=== PATIENT | female | born 1975 | race African-American/Black ===

== ENCOUNTER 2024-04-23 12:52 | Emergency (ER) | payer MEDICAID ==
[~2024-04-23] VITALS: Ht 149.9 cm; Wt 58.0 kg
[~2024-04-23 12:52] MED LIST: ASPI-1406 PO; B50 GT; CITA10TA16 PO; CLON0.2T PO; HYDR100T11 MT; IPRA3AMP9 HHN; KEPP250 PO; LIP40 PO; MELA3TAB40 PO; METO25TA6 PO; NIFE-32 MT; P20 PO; PANT40TA51 PO; QUET300T2 PO; SEVE800T8 PO; TOPUD PO
[2024-04-23 12:56] VITALS: PULSE 87; RESP 14; O2SAT 100
[2024-04-23 13:04] VITALS: BP 155/94; TEMP 36.7; O2SAT 98
[2024-04-23] MEDS ORDERED: ACET-2708 MT (17:22)
== END 2024-04-23 18:27 | disposition home or self-care (01) ==
LOC: ER 12:52
DX: M70.41 Prepatellar bursitis, right knee (principal); I11.0 Hypertensive heart disease with heart failure; I50.9 Heart failure, unspecified; Z79.52 Long term (current) use of systemic steroids; Z79.82 Long term (current) use of aspirin; Z79.899 Other long term (current) drug therapy; Z99.2 Dependence on renal dialysis; X58.XXXA Exposure to other specified factors, initial encounter; Y93.89 Activity, other specified; Y92.89 Other specified places as the place of occurrence of the external cause; Y99.8 Other external cause status
CPT/HCPCS: 81025; 73700; 99284; Z7610; L1830

== ENCOUNTER 2024-07-04 09:26 | Inpatient (IN) | payer OTHER ==
[2024-07-04] VITALS (12 sets, daily range): BP systolic 130–206; BP diastolic 73–124; PULSE 95–121; RESP 18–26; TEMP 36.1–36.5; O2SAT 95–100
[~2024-07-04] VITALS: Ht 149.9 cm; Wt 60.6 kg
[~2024-07-04 09:26] MED LIST changes: +ATOR20TA65 PO; -B50 GT; +CALC667T2 PO; -CITA10TA16 PO; +ESCI5TAB16 PO; +FAMO20TA8 PO; +FOLI-43 PO; +FOLI1CAP6 PO; +FURO-151 MT; +HYDR50TA54 PO; -IPRA3AMP9 HHN; -KEPP250 PO; +LEVE750T10 PO; -LIP40 PO; +LOSA100T33 PO; +MELA10CA PO; -MELA3TAB40 PO; -P20 PO; -PANT40TA51 PO; +QUET200T30 PO; -QUET300T2 PO; -SEVE800T8 PO; -TOPUD PO
[2024-07-04 10:11] LABS: HEMATOCRIT. 32.8 % (36.0-48.0); MEAN CORPUSCULAR HEMOGLOBIN 28.2 pg (28.0-32.0); MEAN CORPUSCULAR HGB CONC 30.5 g/dL (31.0-37.0); MEAN CORPUSCULAR VOLUME 92.2 fL (81.0-99.0); RED BLOOD CELL COUNT 3.56 mill/uL (4.2-5.4); RED CELL DISTRIBUTION WIDTH 24.4 % (11.6-14.6)
[2024-07-04 10:14] LABS: DIFFERENTIAL COMMENT 1
[2024-07-04 10:28] LABS: CHLORIDE 100 mEq/L (98-107); SODIUM 134 mEq/L (136-145)
[2024-07-04 10:29] LABS: CALCIUM 7.8 mg/dL (8.7-10.4)
[2024-07-04 10:34] LABS: GLUCOSE 89 mg/dL (70-105)
[2024-07-04 10:35] LABS: ETHANOL BLOOD < 10 mg/dL (<10)
[2024-07-04 10:36] LABS: PLATELET 247 x1000/uL (130-400)
[2024-07-04] MEDS: LEVETIRACETAM 1000MG PREMIX 100 ML IV ONE (10:40)
[2024-07-04 10:44] LABS: ANISOCYTOSIS 3+
[2024-07-04 10:48] LABS: MICROCYTOSIS 1+
[2024-07-04 10:52] LABS: PLATELET ESTIMATE NORMAL
[2024-07-04 10:54] LABS: POTASSIUM 7.9 mEq/L (3.5-5.1)
[2024-07-04 10:55] LABS: CARBON DIOXIDE < 10 mEq/L (21-32); CREATININE 15.1 mg/dL (0.6-1.0); UREA NITROGEN BLOOD 145 mg/dL (9-23)
[2024-07-04] MEDS: ACETAMINOPHEN WITH CODEINE 300/30MG TABLET PO ONE (11:28)
[2024-07-04] MEDS: CALCIUM CHLORIDE 1GM/10ML SYR IV ONE (11:29)
[2024-07-04] MEDS: SODIUM BICARBONATE 8.4% 50MEQ/50ML SYR IV ONE (11:32)
[2024-07-04] MEDS: DEXTROSE 50% WATER 50ML SYRINGE IV ONE (11:32)
[2024-07-04] MEDS: INSULIN REGULAR (HUMULIN R) 1000UNITS/10ML VIAL IV ONE (11:32)
[2024-07-04] MEDS: FUROSEMIDE 100MG/10ML VIAL IV STA (11:32)
[2024-07-04] MEDS: HYDRALAZINE 20MG/ML VIAL IV PRN (11:56)
[2024-07-04 12:15] LABS: HEPATITIS B SURFACE ANTIGEN NEGATIVE (Negative)
[2024-07-04 12:35] LABS: HEPATITIS A AB IGM NEGATIVE (Negative)
[2024-07-04 12:36] LABS: HEPATITIS B CORE AB IGM NEGATIVE (Negative); HEPATITIS C AB NON REACTIVE (Neg) (Negative)
[2024-07-04] MEDS: ALBUTEROL (0.083%) 2.5MG/3ML NEB HHN ONE (12:45)
[2024-07-04 13:05] LABS: CLARITY URINE CLOUDY (CLEAR); COLOR URINE YELLOW (YELLOW); GLUCOSE URINE 1+ (NEGATIVE); KETONES URINE 1+ (NEGATIVE); LEUKOCYTE ESTERASE URINE 1+ (NEGATIVE); NITRITE URINE NEGATIVE (NEGATIVE); OCCULT BLOOD URINE 2+ (NEGATIVE); PH URINE 7.5 (4.5-8.0); PROTEIN URINE 4+ (NEGATIVE); SPECIFIC GRAVITY URINE 1.015 (1.005-1.030); UROBILINOGEN URINE 0.2 E.U./dL (0.2-1.0)
[2024-07-04 13:07] LABS: SQUAMOUS EPITHELIAL CELL URINE 2+ /lpf (RARE/1+)
[2024-07-04 13:08] LABS: BACTERIA URINE 4+; RBC URINE 15-25 /hpf (0-2)
[2024-07-04] MEDS: NIFEDIPINE XL 90MG TAB PO SCH (13:09)
[2024-07-04 13:40] LABS: *AMPHETAMINES SCREEN URINE PRESUMPTIVE POSITIVE (NEGATIVE); *BARBITURATES SCREEN URINE NEGATIVE (NEGATIVE); *BENZODIAZEPINES SCREEN URINE NEGATIVE (NEGATIVE); *COCAINE SCREEN URINE NEGATIVE (NEGATIVE); METHADONE URINE SCREEN NEGATIVE (NEGATIVE); OPIATES URINE SCREEN NEGATIVE (NEGATIVE)
[2024-07-04 13:41] LABS: CANNABINOID URINE SCREEN NEGATIVE (NEGATIVE); ECSTASY MDMA SCREEN URINE NEGATIVE (NEGATIVE); PHENCYCLIDINE URINE SCREEN NEGATIVE (NEGATIVE)
[2024-07-04] MEDS: MINOXIDIL 2.5MG TABLET PO SCH ×2 (14:35→15:49)
[2024-07-04] MEDS: LABETALOL 5MG/ML 4ML INJ IV PRN (16:13)
[2024-07-04] MEDS: CLONIDINE 0.1MG TABLET PO PRN (17:04)
[2024-07-04] MEDS: ACETAMINOPHEN 325MG TABLET PO PRN (17:33)
[2024-07-04] MEDS ORDERED: ONDANSETRON HCL 4MG/2ML INJ IV PRN (18:00)
[2024-07-04] MEDS ORDERED: LEVETIRACETAM 1000MG PREMIX 100 ML IV SCH (21:00)
[2024-07-04] MEDS: NIFEDIPINE XL 60MG TAB PO SCH (21:00)
[2024-07-04] MEDS ORDERED: LORAZEPAM 2MG/ML UD SYRINGE ONE (21:13)
[2024-07-04] MEDS: LORAZEPAM 2MG/ML UD SYRINGE IV SCH (21:19)
[2024-07-04] MEDS: LEVETIRACETAM 1000MG PREMIX 100 ML IV SCH (22:14)
[2024-07-05] VITALS (13 sets, daily range): BP systolic 122–147; BP diastolic 70–108; PULSE 116–138; RESP 18–24; TEMP 35.9–36.6696; O2SAT 96–99
[2024-07-05 07:40] LABS: POTASSIUM 4.5 mEq/L (3.5-5.1)
[2024-07-05 07:41] LABS: CALCIUM 8.6 mg/dL (8.7-10.4)
[2024-07-05 08:00] LABS: CREATININE 10.7 mg/dL (0.6-1.0)
[2024-07-05] MEDS: MINOXIDIL 2.5MG TABLET PO SCH (08:15)
[2024-07-05 08:51] LABS: EOSINOPHILS % 1.1 % (0.0-5.0); HEMATOCRIT. 29.1 % (36.0-48.0); HEMOGLOBIN. 9.6 g/dL (12.0-16.0); LYMPHOCYTES % 11.1 % (20.0-50.0); MEAN CORPUSCULAR HEMOGLOBIN 28.7 pg (28.0-32.0); MEAN CORPUSCULAR HGB CONC 32.9 g/dL (31.0-37.0); MEAN CORPUSCULAR VOLUME 87.5 fL (81.0-99.0); MEAN PLATELET VOLUME 7.2 fl (7.4-10.4); MONOCYTES % 11.9 % (2.0-8.0); NEUTROPHILS % 74.9 % (40.0-76.0); PLATELET 197 x1000/uL (130-400); RED BLOOD CELL COUNT 3.33 mill/uL (4.2-5.4); RED CELL DISTRIBUTION WIDTH 24.4 % (11.6-14.6)
[2024-07-05 08:55] LABS: DIFFERENTIAL COMMENT 1
[2024-07-05] MEDS: DIPHENHYDRAMINE 50MG CAPSULE PO PRN (11:54)
[2024-07-05] MEDS: CEFTRIAXONE 1GM/50ML 50 ML IV SCH (14:47)
[2024-07-05] MEDS: METOPROLOL TARTRATE 25MG TABLET PO SCH (17:27)
[2024-07-11 09:07] LABS: QFT MITOGEN VALUE 6.29 IU/mL (.); QFT TB GOLD PLUS Negative (Negative); QFT TB1 AG VALUE 0.07 IU/mL (.); QFT TB2 AG VALUE 0.06 IU/mL (.)
== END 2024-07-05 21:42 | disposition short-term general hospital (02) | DRG 720 ==
LOC: ER 09:26 → 8WST 11:15 → EDBEDREQ 11:25 → EDBEDREQTM 11:25
PROVIDERS: ADMIT Internal Medicine; ATTEND Internal Medicine
PROC: 5A1D70Z Performance of Urinary Filtration, Intermittent, Less than 6 Hours Per Day (ICD-10-PCS; principal; 2024-07-04)
PROC: 5A1D70Z Performance of Urinary Filtration, Intermittent, Less than 6 Hours Per Day (ICD-10-PCS; 2024-07-05)
DX: A41.9 Sepsis, unspecified organism (principal); J69.0 Pneumonitis due to inhalation of food and vomit; I13.2 Hypertensive heart and chronic kidney disease with heart failure and with stage 5 chronic kidney disease, or end stage renal disease; N18.6 End stage renal disease; D69.6 Thrombocytopenia, unspecified; D63.8 Anemia in other chronic diseases classified elsewhere; G40.909 Epilepsy, unspecified, not intractable, without status epilepticus; E87.5 Hyperkalemia; I16.0 Hypertensive urgency; F15.10 Other stimulant abuse, uncomplicated; F16.10 Hallucinogen abuse, uncomplicated; F17.210 Nicotine dependence, cigarettes, uncomplicated; I50.9 Heart failure, unspecified; Z99.2 Dependence on renal dialysis; Z87.01 Personal history of pneumonia (recurrent); Z91.199 Patient's noncompliance with other medical treatment and regimen due to unspecified reason
CPT/HCPCS: 36415; 71045; 80048; 80305; 80320; 81003; 82962; 84145; 85025; 86480; 86705; 86709; 87340; 90935; 94070; 94640; 99291; A4606; J0360; J0696; J1815; J1940; J1953; J2060; J3490; Q0163; G0480

== ENCOUNTER 2024-12-10 07:15 | Inpatient (IN) | payer MEDICAID, OTHER ==
[~2024-12-10] VITALS: Ht 149.9 cm; Wt 64.4 kg
[2024-12-10] VITALS (59 sets, daily range): BP systolic 79–234; BP diastolic 60–138; PULSE 97–129; RESP 16–28; TEMP 36.22512–37.1; O2SAT 96–100
[2024-12-10] MEDS: METHYLPREDNISOLONE SOD SUCC 125MG/2ML (ACT-O-VIAL) IV ONE (07:30)
[2024-12-10 08:05] LABS: HEMATOCRIT. 30.4 % (36.0-48.0); HEMOGLOBIN. 9.5 g/dL (12.0-16.0); MEAN PLATELET VOLUME 7.4 fl (7.4-10.4); PLATELET 265 x1000/uL (130-400); RED BLOOD CELL COUNT 3.30 mill/uL (4.2-5.4); RED CELL DISTRIBUTION WIDTH 21.7 % (11.6-14.6)
[2024-12-10] MEDS: IPRATROPIUM BROMIDE (0.02%) 0.5MG/2.5ML NEB HHN SCH (08:20)
[2024-12-10] MEDS: ALBUTEROL (0.083%) 2.5MG/3ML NEB HHN SCH (08:20)
[2024-12-10 08:23] LABS: HCG SCREEN NEGATIVE; TROPONIN I HIGH SENSITIVITY 263 ng/L (3.0-34)
[2024-12-10] MEDS ORDERED: CALCIUM GLUCONATE 100MG/ML 10ML VIAL IV ONE ×2 (08:30)
[2024-12-10 08:43] LABS: UREA NITROGEN BLOOD 123 mg/dL (9-23)
[2024-12-10] MEDS ORDERED: PROPOFOL 10MG/ML 100ML 100 ML IV STA (08:43)
[2024-12-10 08:44] LABS: BILIRUBIN DIRECT < 0.1 mg/dL (<=3.0); BILIRUBIN TOTAL < 0.2 mg/dL (0.1-1.0); CREATININE 14.0 mg/dL (0.6-1.0); PROTEIN TOTAL 7.4 g/dL (6.0-8.3)
[2024-12-10 08:45] LABS: ASPARTATE AMINOTRANSFERASE 17 IU/L (<34)
[2024-12-10] MEDS: CALCIUM CHLORIDE 1GM/10ML SYR IV ONE (09:06)
[2024-12-10] MEDS: DEXTROSE 50% WATER 50ML SYRINGE IV ONE (09:06)
[2024-12-10] MEDS: CALCIUM GLUCONATE 1GM PREMIX 50 ML IV ONE (09:07)
[2024-12-10] MEDS ORDERED: FENTANYL 2500MCG/250ML PMX 250 ML IV ONE (09:15)
[2024-12-10] MEDS: INSULIN REGULAR (HUMULIN R) 1000UNITS/10ML VIAL IV ONE (09:22)
[2024-12-10] MEDS: FENTANYL 2500MCG/250ML PMX 250 ML IV PRN (09:23)
[2024-12-10] MEDS ORDERED: IPRATROPIUM/ALBUTEROL 0.5-3(2.5)MG/3ML NEB HHN PRN (09:30)
[2024-12-10] MEDS: AZITHROMYCIN 500MG/250ML 250 ML IV SCH (09:36)
[2024-12-10] MEDS: DEXTROSE 50% WATER 50ML SYRINGE IV NR (09:54)
[2024-12-10] MEDS: INSULIN REGULAR (HUMULIN R) 1000UNITS/10ML VIAL IV NR (09:54)
[2024-12-10] MEDS: SODIUM BICARBONATE 8.4% 50MEQ/50ML SYR IV SCH ×4 (09:55→23:36)
[2024-12-10] MEDS: HYDRALAZINE 20MG/ML VIAL IV NR (09:55)
[2024-12-10] MEDS: SODIUM BICARBONATE 8.4% 50MEQ/50ML SYR IV NR (09:55)
[2024-12-10] MEDS: ALBUTEROL (0.083%) 2.5MG/3ML NEB HHN NR (10:04)
[2024-12-10 10:20] LABS: BG BASE EXCESS -11.2 mmol/L (-2.0-3.0); BG CARBOXYHEMOGLOBIN 1.2 % (0.5-1.5); BG DEOXYHEMOGLOBIN 0.3 % (0.0-5.0); BG FRACTION INSPIRED OXYGEN 100; BG HCO3 ACT 15.2 mmol/L (21.0-28.0); BG METHEMOGLOBIN 0.3 % (0.5-1.5); BG OXYGEN SATURATION 99.7 % (94.0-98.0); BG OXYHEMOGLOBIN 98.2 % (94.0-98.0); BG PCO2 35.9 mmHg (32.0-45.0); BG PEEP (cmH2O) 5.0 cmH2O; BG PH 7.245 (7.350-7.450); BG PO2 361.4 mmHg (83.0-108.0); BG SAMPLE SITE RIGHT BRACHIAL; BG TIDAL VOLUME(mL) 500.0 mL; BG TOTAL HEMOGLOBIN 10.3 g/dL (12.0-16.0); BG TOTAL RESPIRATORY RATE 21 b/min; BG VENT MODE VENT - AC; BG VENT RATE 16.0 set
[2024-12-10 10:56] LABS: TROPONIN I HIGH SENSITIVITY 260 ng/L (3.0-34)
[2024-12-10] MEDS: DEXTROSE 50% WATER 50ML SYRINGE IV SCH ×2 (11:26→23:36)
[2024-12-10] MEDS: INSULIN REGULAR (HUMULIN R) 1000UNITS/10ML VIAL IV SCH ×2 (11:29→23:37)
[2024-12-10] MEDS: BLOOD SUGAR DIAGNOSTIC STRIP TEST SCH (11:30)
[2024-12-10] MEDS: NICARDIPINE 50 MG in SODIUM CHLORIDE 0.9% 230 ML IV PRN (11:42)
[2024-12-10 11:49] LABS: HEPATITIS A AB IGM NEGATIVE (Negative)
[2024-12-10 11:50] LABS: HEPATITIS B CORE AB IGM NEGATIVE (Negative)
[2024-12-10 11:51] LABS: HEPATITIS C AB NON REACTIVE (Neg) (Negative)
[2024-12-10] MEDS: DEXMEDETOMIDINE 100 ML IV PRN (13:15)
[2024-12-10] MEDS: PANTOPRAZOLE SODIUM 40 MG/VIAL IV SCH (14:38)
[2024-12-10] MEDS: ENOXAPARIN 30MG/0.3ML SYR SUBCUT SCH (14:38)
[2024-12-10] MEDS ORDERED: PHENYLEPHRINE 50MG/250ML PMX 250 ML IV PRN (15:00)
[2024-12-10 15:22] LABS: BAND% 4.0 % (1.0-6.0); EOSINOPHILS % MANUAL 3.0 % (0.0-5.0); LYMPHOCYTES % MANUAL 6.0 % (20.0-60.0); MONOCYTES % MANUAL 2.0 % (2.0-8.0); NEUTROPHILS % MANUAL 85.0 % (45.0-75.0); PLATELET ESTIMATE NORMAL
[2024-12-10] MEDS: LORAZEPAM 2MG/ML UD SYRINGE IV PRN (17:10)
[2024-12-10 21:43] LABS: UREA NITROGEN BLOOD 51.0 mg/dL (9-23)
[2024-12-10 21:44] LABS: CREATININE 8.2 mg/dL (0.6-1.0)
[2024-12-10] MEDS: LEVETIRACETAM 250MG TABLET PO SCH (22:15)
[2024-12-10] MEDS: CALCIUM GLUCONATE 1GM PREMIX 50 ML IV SCH ×2 (23:04→23:36)
[2024-12-11] VITALS (106 sets, daily range): BP systolic 113–186; BP diastolic 80–142; PULSE 87–133; RESP 15–37; TEMP 36.50292–37.2; O2SAT 91–100
[2024-12-11] MEDS ORDERED: CEFEPIME 1GM IN DEXT 5% 50ML IV SCH (01:30)
[2024-12-11] MEDS: CEFEPIME 1GM PREMIX 50ML IV SCH (01:50)
[2024-12-11 05:35] LABS: BASOPHILS % 0.1 % (0.0-2.0); EOSINOPHILS % 0.0 % (0.0-5.0); HEMATOCRIT. 24.9 % (36.0-48.0); HEMOGLOBIN. 8.0 g/dL (12.0-16.0); LYMPHOCYTES % 7.5 % (20.0-50.0); MEAN PLATELET VOLUME 7.8 fl (7.4-10.4); MONOCYTES % 6.2 % (2.0-8.0); NEUTROPHILS % 86.2 % (40.0-76.0); PLATELET 207 x1000/uL (130-400); RED BLOOD CELL COUNT 2.74 mill/uL (4.2-5.4); RED CELL DISTRIBUTION WIDTH 21.4 % (11.6-14.6)
[2024-12-11 05:55] LABS: UREA NITROGEN BLOOD 60.0 mg/dL (9-23)
[2024-12-11 05:59] LABS: CREATININE 9.3 mg/dL (0.6-1.0)
[2024-12-11] MEDS: ASPIRIN 81MG EC TABLET PO SCH (08:04)
[2024-12-11] MEDS: FOLIC ACID 1MG TABLET PO SCH (08:04)
[2024-12-11] MEDS: FENTANYL 2500MCG/250ML PMX 250 ML IV PRN (09:40)
[2024-12-11] MEDS: HYDRALAZINE 20MG/ML VIAL IV PRN (11:18)
[2024-12-11 14:21] LABS: BG BASE EXCESS -3.1 mmol/L (-2.0-3.0); BG CARBOXYHEMOGLOBIN 1.9 % (0.5-1.5); BG DEOXYHEMOGLOBIN 2.5 % (0.0-5.0); BG FRACTION INSPIRED OXYGEN 40; BG HCO3 ACT 22.1 mmol/L (21.0-28.0); BG METHEMOGLOBIN 0.2 % (0.5-1.5); BG OXYGEN SATURATION 97.4 % (94.0-98.0); BG OXYHEMOGLOBIN 95.4 % (94.0-98.0); BG PCO2 40.1 mmHg (32.0-45.0); BG PEEP (cmH2O) 5.0 cmH2O; BG PH 7.359 (7.350-7.450); BG PO2 108.0 mmHg (83.0-108.0); BG SAMPLE SITE RIGHT RADIAL; BG TOTAL HEMOGLOBIN 10.4 g/dL (12.0-16.0); BG VENT MODE VENT - CPAP
[2024-12-11] MEDS: CLONIDINE 0.2MG TABLET PO SCH (16:39)
[2024-12-11 18:02] LABS: BG BASE EXCESS -3.2 mmol/L (-2.0-3.0); BG CARBOXYHEMOGLOBIN 1.9 % (0.5-1.5); BG DEOXYHEMOGLOBIN 7.8 % (0.0-5.0); BG FLOW(L/min) 10.00 L/min; BG FRACTION INSPIRED OXYGEN 40; BG HCO3 ACT 22.2 mmol/L (21.0-28.0); BG METHEMOGLOBIN 0.2 % (0.5-1.5); BG OXYGEN SATURATION 92.0 % (94.0-98.0); BG OXYHEMOGLOBIN 90.1 % (94.0-98.0); BG PCO2 41.0 mmHg (32.0-45.0); BG PH 7.351 (7.350-7.450); BG PO2 72.1 mmHg (83.0-108.0); BG SAMPLE SITE RIGHT RADIAL; BG TOTAL HEMOGLOBIN 10.6 g/dL (12.0-16.0); BG VENT MODE COOL AEROSOL
[2024-12-11] MEDS: METOPROLOL TARTRATE 50MG TABLET PO SCH (19:08)
[2024-12-11] MEDS: LOSARTAN 100 MG TABLET PO SCH (19:08)
[2024-12-11] MEDS ORDERED: NALOXONE HCL 0.4MG/ML VIAL IV PRN (19:15)
[2024-12-11] MEDS: ATORVASTATIN CALCIUM 40MG TABLET PO SCH (20:49)
[2024-12-11] MEDS: EPOETIN ALFA-EPBX 4,000 UNITS/ML VIAL SUBCUT SCH (20:57)
[2024-12-11] MEDS ORDERED: ATORVASTATIN CALCIUM 20MG TABLET PO SCH (21:00)
[2024-12-12] VITALS (99 sets, daily range): BP systolic 87–185; BP diastolic 50–136; PULSE 87–123; RESP 12–39; TEMP 36.4–37.1; O2SAT 86–100
[2024-12-12] MEDS: HYDRALAZINE HCL 50MG TABLET PO SCH (05:04)
[2024-12-12 05:41] LABS: BASOPHILS % 0.2 % (0.0-2.0); EOSINOPHILS % 0.8 % (0.0-5.0); HEMATOCRIT. 30.5 % (36.0-48.0); HEMOGLOBIN. 9.4 g/dL (12.0-16.0); LYMPHOCYTES % 11.5 % (20.0-50.0); MEAN PLATELET VOLUME 7.1 fl (7.4-10.4); MONOCYTES % 6.4 % (2.0-8.0); NEUTROPHILS % 81.1 % (40.0-76.0); PLATELET 200 x1000/uL (130-400); RED BLOOD CELL COUNT 3.30 mill/uL (4.2-5.4); RED CELL DISTRIBUTION WIDTH 21.6 % (11.6-14.6)
[2024-12-12 05:53] LABS: UREA NITROGEN BLOOD 47.0 mg/dL (9-23)
[2024-12-12 06:06] LABS: CREATININE 8.8 mg/dL (0.6-1.0)
[2024-12-12] MEDS: HYDROCODONE/ACETAMINOPHEN 5/325MG TABLET PO PRN (11:00)
[2024-12-12] MEDS: MINOXIDIL 2.5MG TABLET PO SCH (16:34)
[2024-12-12] MEDS: DIPHENHYDRAMINE 50MG/ML VIAL IV PRN (16:34)
[2024-12-13] VITALS (54 sets, daily range): BP systolic 66–139; BP diastolic 44–107; PULSE 91–122; RESP 18–45; TEMP 35.7–37.2; O2SAT 90–100
[2024-12-13 07:06] LABS: UREA NITROGEN BLOOD 29.0 mg/dL (9-23)
[2024-12-13 07:08] LABS: BASOPHILS % 0.5 % (0.0-2.0); EOSINOPHILS % 2.9 % (0.0-5.0); HEMATOCRIT. 27.9 % (36.0-48.0); HEMOGLOBIN. 8.9 g/dL (12.0-16.0); LYMPHOCYTES % 16.4 % (20.0-50.0); MEAN PLATELET VOLUME 7.5 fl (7.4-10.4); MONOCYTES % 10.2 % (2.0-8.0); NEUTROPHILS % 70.0 % (40.0-76.0); PLATELET 188 x1000/uL (130-400); RED BLOOD CELL COUNT 3.05 mill/uL (4.2-5.4); RED CELL DISTRIBUTION WIDTH 20.5 % (11.6-14.6)
[2024-12-13 08:31] LABS: CREATININE 6.2 mg/dL (0.6-1.0)
[2024-12-13] MEDS: QUETIAPINE FUMARATE 50MG TABLET PO SCH (22:05)
[2024-12-14] VITALS (12 sets, daily range): BP systolic 77–145; BP diastolic 45–99; PULSE 95–125; RESP 18–20; TEMP 35.9–37.2; O2SAT 96–100
[2024-12-14] MEDS: MIDODRINE HCL 5MG TABLET PO SCH (13:35)
[2024-12-14] MEDS: SODIUM CHLORIDE 0.9% 250 ML IV ONE (13:36)
[2024-12-15] VITALS: BP 92/51; PULSE 80; RESP 18; TEMP 37.1; O2SAT 98
[2024-12-15] MEDS: CLONIDINE 0.1MG TABLET PO SCH (01:28)
[2024-12-15 04:00] VITALS: BP 110/66; PULSE 117; RESP 21; TEMP 36; O2SAT 96
[2024-12-15 08:00] VITALS: BP 139/96; PULSE 78; RESP 18; TEMP 36.6; O2SAT 100
[2024-12-15 12:00] VITALS: BP 160/80; PULSE 123; RESP 18; TEMP 36.5; O2SAT 100
[2024-12-15] MEDS ORDERED: MIDO10TA3 MT (15:30)
[2024-12-15 16:00] VITALS: BP 121/73; PULSE 120; RESP 20; TEMP 36.8; O2SAT 98
[2024-12-15 20:00] VITALS: BP 146/98; PULSE 116; RESP 20; TEMP 36.3; O2SAT 98
[2024-12-16] VITALS: BP 161/96; PULSE 99; RESP 18; TEMP 36.6
[2024-12-16 04:00] VITALS: BP 140/91; PULSE 99; RESP 18; TEMP 36.7; O2SAT 98
[2024-12-16 08:00] VITALS: BP 130/60; PULSE 80; RESP 18; TEMP 36.5; O2SAT 97
[2024-12-16 12:00] VITALS: BP 148/95; PULSE 100; RESP 19; TEMP 36.6; O2SAT 100
[2024-12-16 16:00] VITALS: BP 132/88; PULSE 99; RESP 20; TEMP 36.8; O2SAT 100
[2024-12-16 20:00] VITALS: BP 181/116; PULSE 103; RESP 15; TEMP 36.8; O2SAT 98
[2024-12-16] MEDS ORDERED: NALOXONE HCL 0.4MG/ML VIAL IV PRN (20:15)
[2024-12-16] MEDS: DIPHENHYDRAMINE 50MG/ML VIAL IM PRN (21:30)
[2024-12-16] MEDS: METOPROLOL TARTRATE 50MG TABLET PO SCH (21:31)
[2024-12-17] VITALS (14 sets, daily range): BP systolic 103–180; BP diastolic 60–112; PULSE 85–103; RESP 15–20; TEMP 36.1–36.8; O2SAT 94–98
[2024-12-17] MEDS: HYDROCODONE/ACETAMINOPHEN 5/325MG TABLET PO PRN (01:35)
[2024-12-17] MEDS: ACETAMINOPHEN 325MG TABLET PO PRN (05:26)
[2024-12-17 18:08] LABS: BG BASE EXCESS -5.3 mmol/L (-2.0-3.0); BG CARBOXYHEMOGLOBIN 1.1 % (0.5-1.5); BG DEOXYHEMOGLOBIN 4.2 % (0.0-5.0); BG FRACTION INSPIRED OXYGEN 21; BG HCO3 ACT 19.9 mmol/L (21.0-28.0); BG METHEMOGLOBIN 0.3 % (0.5-1.5); BG OXYGEN SATURATION 95.7 % (94.0-98.0); BG OXYHEMOGLOBIN 94.4 % (94.0-98.0); BG PCO2 37.7 mmHg (32.0-45.0); BG PH 7.341 (7.350-7.450); BG PO2 90.9 mmHg (83.0-108.0); BG SAMPLE SITE RIGHT RADIAL; BG TOTAL HEMOGLOBIN 8.6 g/dL (12.0-16.0); BG VENT MODE ROOM AIR
[2024-12-18] VITALS (10 sets, daily range): BP systolic 114–160; BP diastolic 66–95; PULSE 85–105; RESP 16–18; TEMP 36.3–36.7; O2SAT 96–100
== END 2024-12-18 21:16 | disposition home health service (06) | DRG 133 ==
LOC: ER 07:15 → EDBEDREQSVC 09:25 → EDBEDREQ 09:25 → EDBEDREQTM 09:25 → ENRESERV 09:59 → EDBEDREQ 10:15 → MICUNO 10:16 → 8WST 12-13 16:25
PROVIDERS: ADMIT Internal Medicine; ATTEND Internal Medicine
PROC: 5A1945Z Respiratory Ventilation, 24-96 Consecutive Hours (ICD-10-PCS; principal; 2024-12-10)
PROC: 0BH17EZ Insertion of Endotracheal Airway into Trachea, Via Natural or Artificial Opening (ICD-10-PCS; 2024-12-10)
PROC: 02HV33Z Insertion of Infusion Device into Superior Vena Cava, Percutaneous Approach (ICD-10-PCS; 2024-12-10)
PROC: B548ZZA Ultrasonography of Superior Vena Cava, Guidance (ICD-10-PCS; 2024-12-10)
PROC: 5A1D70Z Performance of Urinary Filtration, Intermittent, Less than 6 Hours Per Day (ICD-10-PCS; 2024-12-10)
PROC: 5A09357 Assistance with Respiratory Ventilation, Less than 24 Consecutive Hours, Continuous Positive Airway Pressure (ICD-10-PCS; 2024-12-10)
PROC: 5A1D70Z Performance of Urinary Filtration, Intermittent, Less than 6 Hours Per Day (ICD-10-PCS; 2024-12-11)
PROC: 5A1D70Z Performance of Urinary Filtration, Intermittent, Less than 6 Hours Per Day (ICD-10-PCS; 2024-12-12)
PROC: 5A1D70Z Performance of Urinary Filtration, Intermittent, Less than 6 Hours Per Day (ICD-10-PCS; 2024-12-14)
PROC: 5A1D70Z Performance of Urinary Filtration, Intermittent, Less than 6 Hours Per Day (ICD-10-PCS; 2024-12-17)
DX: J96.01 Acute respiratory failure with hypoxia (principal); G93.40 Encephalopathy, unspecified; I13.2 Hypertensive heart and chronic kidney disease with heart failure and with stage 5 chronic kidney disease, or end stage renal disease; Z99.11 Dependence on respirator [ventilator] status; I50.33 Acute on chronic diastolic (congestive) heart failure; N18.6 End stage renal disease; D69.6 Thrombocytopenia, unspecified; Z99.2 Dependence on renal dialysis; J44.9 Chronic obstructive pulmonary disease, unspecified; D63.8 Anemia in other chronic diseases classified elsewhere; G40.909 Epilepsy, unspecified, not intractable, without status epilepticus; F15.10 Other stimulant abuse, uncomplicated; E87.5 Hyperkalemia; I16.1 Hypertensive emergency; R55 Syncope and collapse; D57.3 Sickle-cell trait; F16.10 Hallucinogen abuse, uncomplicated; I25.10 Atherosclerotic heart disease of native coronary artery without angina pectoris; Q24.5 Malformation of coronary vessels; Z87.01 Personal history of pneumonia (recurrent); Z91.199 Patient's noncompliance with other medical treatment and regimen due to unspecified reason; Z79.899 Other long term (current) drug therapy
CPT/HCPCS: 31500; 31720; 36415; 36573; 36600; 71045; 73560; 74176; 80048; 80076; 82375; 82805; 82962; 84132; 84484; 84703; 85025; 85027; 86705; 86709; 87340; 90935; 93005; 93308; 93970; 94003; 94070; 94618; 94640; 94660; 94664; 96374; 96375; 97162; 97165; 97530; 98960; 99291; A4606; C1725; J0360; J0456; J0612; J0692; J0885; J1200; J1650; J1815; J2060; J2470; J2704; J2919; J3010; J3490; J7050